=== PATIENT | female | born 1980 | race Caucasian/White ===

== ENCOUNTER 2022-02-06 01:25 | Emergency (ER) | payer BC ==
[2022-02-06 01:49] VITALS: BP 158/102; PULSE 78
[2022-02-06] MEDS ORDERED: Ketorolac 60 MG/2 ML SDV IM ONE (02:17)
== END 2022-02-06 03:08 | disposition home or self-care (01) ==
LOC: KA.ED 01:25
DX: S92.014A Nondisplaced fracture of body of right calcaneus, initial encounter for closed fracture (principal); Z79.84 Long term (current) use of oral hypoglycemic drugs; Z79.899 Other long term (current) drug therapy; W22.8XXA Striking against or struck by other objects, initial encounter
CPT/HCPCS: 73610-RT; 73630-RT; 96372; 99283; J1885